=== PATIENT | female | born 1965 | race African-American/Black ===

== ENCOUNTER 2017-04-22 09:41 | Emergency (ER) | payer MEDICAID ==
[~2017-04-22] VITALS: Ht 162.6 cm; Wt 54.4 kg
--- NOTE | 2017-04-22 09:41 | NUR ---
Patient ANKITBhavna MAGALI, triaged by RN. Waiting for an available bed.
[2017-04-22 09:49] VITALS: BP 177/106
--- NOTE | 2017-04-22 10:36 | NUR ---
PATIENT IS A 51 YO FEMALE BIB EMS FROM [facility] FOR SORE THROAT, ADMITS TO SMOKING METH ALL NIGHT AND HAVING ANXIETY. SHE IS AWAKE AND ALERT ON ARRIVAL, NO ACUTE DISTRESS TO OVERFLOW 1 FOR MD CISNEROS.
[2017-04-22] MEDS ORDERED: CEPHALEXIN 500 MG CAP PO ONE (10:45)
[2017-04-22] MEDS ORDERED: DEXAMETHASONE 4 MG/ML VIAL PO ONE (10:45)
[2017-04-22] MEDS ORDERED: SULFAMETH/TRIMETH DS 800/160MG 1 TAB PO ONE (10:45)
[2017-04-22] MEDS ORDERED: ACETAMIN/CODEINE 120/12MG-5ML 5 ML UDC PO ONE (10:45)
--- NOTE | 2017-04-22 11:06 | NUR ---
PATIENT MEDICATED PER ORDER AND LAB SPECIMENT SENT.
--- NOTE | 2017-04-22 11:46 | NUR ---
PATIENT AWAITING LAB RESULTS STATES SHE FEELS BETTER.
[2017-04-22 12:05] VITALS: BP 142/76
--- NOTE | 2017-04-22 12:07 | NUR ---
PATIENT ELOPED FROM ER PRIOR TO DC SEEN WALKING AWAY BY STAFF.
== END 2017-04-22 12:07 | disposition left against medical advice (07) ==
LOC: MED 09:41
DX: J02.9 Acute pharyngitis, unspecified (principal); R03.0 Elevated blood-pressure reading, without diagnosis of hypertension
CPT/HCPCS: 36415; 87081; 87804; 99284; J1100

== ENCOUNTER 2017-05-01 20:30 | Emergency (ER) | payer MEDICAID ==
[~2017-05-01] VITALS: Ht 162.6 cm; Wt 56.7 kg
[2017-05-01 20:46] VITALS: BP 149/93
--- NOTE | 2017-05-01 21:22 | NUR ---
TO ER OF1
--- NOTE | 2017-05-01 21:30 | NUR ---
Patient being evaluated by physician
[2017-05-01 21:48] VITALS: BP 149/93
--- NOTE | 2017-05-01 21:48 | NUR ---
Patient discharged with v/s stable. Written and verbal after care instructions given and explained. Patient alert, oriented and verbalized understanding of instructions. Ambulatory with steady gait. All questions addressed prior to discharge. ID band removed. Patient advised to follow up with PMD. Rx of diphenhydramine given. Patient educated on indication of medication including possible reaction and side effects. Opportunity to ask questions provided and answered.
== END 2017-05-01 21:48 | disposition home or self-care (01) ==
LOC: MED 20:30
DX: L29.9 Pruritus, unspecified (principal); I10 Essential (primary) hypertension; Z86.2 Personal history of diseases of the blood and blood-forming organs and certain disorders involving the immune mechanism
CPT/HCPCS: 99282

== ENCOUNTER 2019-03-13 14:54 | Inpatient (IN) | payer MEDICAID ==
[~2019-03-13] VITALS: Ht 175.3 cm; Wt 54.0 kg
[2019-03-13 15:03] VITALS: BP 127/89
--- NOTE | 2019-03-13 15:30 | NUR ---
BROUGHT IN BY EMS FROM STREET IN [place] C/O REQUIRING MEDICAL CLEARANCE TO RE-ENTER JAIL FOR RECENT INFECTION W/ SCABIES. NO VISIBLE SIGN OF SCABIES, PT DENIES PAIN AT THIS TIME. VSS. WHEELCHAIR IS BEING VIANEY BY EMS AT THIS TIME FOR LT SIDED DEFECIT FROM PREVIOUS CVA HX--CVA WITH LEFT SIDED DEFICITS RX---??
[2019-03-13 15:59] LABS: BASOPHILS % (AUTO) 0.7 % (0.0-2.0); HEMATOCRIT 40.5 % (36-48); HEMOGLOBIN 13.3 g/dL (12.0-16.0); LYMPHOCYTES # (AUTO) 1.6 K/uL (2.5-16.5); LYMPHOCYTES % (AUTO) 45.5 % (20.5-51.1); MEAN CORPUSCULAR HEMOGLOBIN 29 pg (27-31); MEAN CORPUSCULAR HGB CONC 33 g/dL (33-37); MEAN CORPUSCULAR VOLUME 87.4 fL (80-94); MONOCYTES # (AUTO) 0.3 K/uL (0.8-1.0); MONOCYTES % (AUTO) 8.1 % (1.7-9.3); NEUTROPHILS # (AUTO) 1.6 K/uL (1.8-7.7); NEUTROPHILS % (AUTO) 44.7 % (42.2-75.2); PLATELET COUNT (AUTO) 316 K/uL (140-450); RED BLOOD CELL COUNT(AUTO) 4.63 MIL/uL (4.20-5.40); RED CELL DISTRIBUTION WIDTH 12.9 % (11.6-13.7); WHITE BLOOD COUNT (AUTO) 3.6 K/uL (4.8-10.8)
--- NOTE | 2019-03-13 16:00 | NUR ---
PT STATES SHE IS UNABLE TO PROVIDE URINE SAMPLE AT THIS TIME. LORI JIM MADE AWARE
--- NOTE | 2019-03-13 16:20 | NUR ---
# 14 FR Urinary catheter inserted utilizing sterile technique. Immediate return of 100 ml CLEAR YELLOW urine noted. Urine sample collected and sent to lab. Pt tolerated procedure WELL. PERFORMED BY ASIA PRICE
[2019-03-13 16:40] LABS: ALBUMIN 3.8 g/dL (3.4-5.0); ANION GAP 10.4 (8-16); CARBON DIOXIDE 31.7 mmol/L (21-32); POTASSIUM 5.1 mmol/L (3.5-5.1); TOTAL BILIRUBIN 0.5 mg/dL (0.0-1.0)
[2019-03-13 17:11] LABS: APPEARANCE,URINE HAZY (CLEAR); BILIRUBIN,URINE 1+ (NEGATIVE); BLOOD, URINE NEGATIVE (NEGATIVE); COLOR,URINE YELLOW (YELLOW); LEUKOCYTE ESTERASE ,URINE TRACE (NEGATIVE); NITRITE, URINE NEGATIVE (NEGATIVE); UGLUCOSE NEGATIVE (NEGATIVE)
--- NOTE | 2019-03-13 17:41 | NUR ---
PT SLEEPING IN BED, UPON AWAKING PT SHE STATES SHE HAS NO PAIN. VSS. PT ATE LUNCH AND HAS EXTRA SANDWICH PROVIDED FOR TO GO. PT WHEELCHAIR WAS DELIVERED AND IS CURRENTLY PLUGGED IN CHARGING.
[2019-03-13 17:54] LABS: BARBITURATE, URINE NEG. ng/ml (NEG <=200); BENZODIAZEPINE, URINE NEG. ng/mL (NEG <=200); CANNABINOID, URINE NEG. ng/mL (NEG <=50); COCAINE, URINE NEG. ng/mL (NEG <=300); OPIATE, URINE NEG. ng/mL (NEG <=2000); PHENCYCLIDINE SCREEN,URINE NEG. ng/mL (NEG <=25)
[2019-03-13] MEDS ORDERED: NACL 0.9% 1,000 ML IV ONE (18:25)
[2019-03-13] MEDS ORDERED: ZOLPIDEM 5 MG TAB PO PRN (18:35)
[2019-03-13] MEDS ORDERED: DOCUSATE SODIUM 100 MG GELCAP PO PRN (18:35)
[2019-03-13] MEDS ORDERED: HYDROcodone/APAP 5/325 MG 1 TAB TAB PO PRN (18:35)
[2019-03-13] MEDS ORDERED: LORazepam 2 MG/ML VIAL IM/IVP PRN (18:35)
[2019-03-13] MEDS ORDERED: ACETAMINOPHEN 325 MG TAB PO PRN (18:35)
[2019-03-13] MEDS ORDERED: ONDANSETRON 4 MG/2 ML VIAL IM/IVP PRN (18:35)
--- NOTE | 2019-03-13 19:00 | NUR ---
RECEIVED REPORT FROM CHARGE NURSE MAUREEN-ALBERT AT BEDSIDE. PT RESTING IN BED, AOX4, ON ROOM AIR WITH RIGHT AC #20 RUNNING NS WIDE OPEN. PT HAS LEFT SIDED WEAKNESS DUE TO HX: CVA. PT USES POWER WHEELCHAIR AND CANE AT BASELINE- NEEDS ASSISTANCE TO WALK. DISCUSSED PLAN OF CARE AND PT VERBALIZED UNDERSTANDING. VITAL SIGNS TAKEN AND TOLERATED WELL. MRSA NARES COLLECTED. BED IN LOWEST POSITION, BED BREAKS ON, BOTH SIDE RAILS UP AND FALL PRECAUTIONS IN PLACE. BEDSIDE TABLE AND CALL LIGHT ARE WITHIN REACH. WILL CONTINUE TO MONITOR.
--- NOTE | 2019-03-13 19:00 | NUR ---
Patient will be admitted to care of DR LOZOYA. Admited to MED/SURG VIA DANIELA W/ VSS. Will go to room 125B. Belongings list completed. Report to CHARGE NURSE.
[2019-03-13 19:02] LABS: PROTHROMBIN TIME 10.3 secs (10.8-13.4)
[2019-03-13 19:33] LABS: CHOL/HDL RATIO 3.7 (1-4.5); FREE T4 (FREE THYROXINE) 1.17 ng/dL (0.76-1.46); MAGNESIUM 2.4 mg/dL (1.8-2.4); THYROID STIMULATING HORMONE 1.08 uIU/mL (0.34-3.74)
[2019-03-13 20:00] VITALS: BP 105/63
--- NOTE | 2019-03-13 21:00 | NUR ---
PT SLEEPING IN BED. NO S/S OF RESPIRATORY DISTRESS OR DISCOMFORT NOTED AT THIS TIME. WILL CONTINUE TO MONITOR.
[2019-03-13] MEDS: NACL 0.9% 1,000 ML IV SCH (21:24)
--- NOTE | 2019-03-13 23:00 | NUR ---
PT CONTINUES TO SLEEP IN BED. NO S/S OF RESPIRATORY DISTRESS OR DISCOMFORT NOTED AT THIS TIME. WILL CONTINUE TO MONITOR.
[2019-03-14] VITALS: BP 114/69
--- NOTE | 2019-03-14 | NUR ---
VITAL SIGNS TAKEN AND TOLERATED WELL. NO S/S OF RESPIRATORY DISTRESS OR DISCOMFORT NOTED AT THIS TIME. WILL CONTINUE TO MONITOR.
--- NOTE | 2019-03-14 02:00 | NUR ---
PT CONTINUES TO SLEEP IN BED. NO S/S OF RESPIRATORY DISTRESS OR DISCOMFORT NOTED AT THIS TIME. WILL CONTINUE TO MONITOR.
--- NOTE | 2019-03-14 03:11 | NUR ---
SCHEDULED MEDICATION ROCEPHIN GIVEN AND TOLERATED WELL. NO S/S OF RESPIRATORY DISTRESS OR DISCOMFORT NOTED AT THIS TIME. WILL CONTINUE TO MONITOR.
[2019-03-14] MEDS ORDERED: cefTRIAXone 1,000 MG VIAL ONE (03:14)
--- NOTE | 2019-03-14 04:00 | NUR ---
PT CONTINUES TO SLEEP IN BED. NO S/S OF RESPIRATORY DISTRESS OR DISCOMFORT NOTED AT THIS TIME. WILL CONTINUE TO MONITOR.
[2019-03-14] MEDS: NACL 0.9% 1,000 ML IV SCH ×2 (04:32→15:55)
--- NOTE | 2019-03-14 06:00 | NUR ---
PT CONTINUES TO SLEEP IN BED. NO S/S OF RESPIRATORY DISTRESS OR DISCOMFORT NOTED AT THIS TIME. WILL CONTINUE TO MONITOR.
--- NOTE | 2019-03-14 07:09 | NUR ---
ENDORSED PT CARE TO DAY SHIFT NURSE CARRIE FOR CONTINUITY OF CARE.
--- NOTE | 2019-03-14 07:10 | NUR ---
RECEIVED REPORT FROM PORT WARDEN NURSE FOR CONTINUITY OF CARE. PT IN STABLE CONDITION.
--- NOTE | 2019-03-14 07:49 | NUR ---
ASSISTED PT TO RESTROOM TO URINATE. PT TOLERATED WELL. WILL CONTINUE TO MONITOR. BED IN LOW POSITION. BED ALARM ON. CALL LIGHT AT BEDSIDE.
[2019-03-14 08:00] VITALS: BP 132/77
--- NOTE | 2019-03-14 08:37 | NUR ---
PATIENT HAS BEEN SCREENED AND CATEGORIZED HIGH NUTRITION RISK. PATIENT WILL BE SEEN WITHIN 1-2 DAYS OF ADMISSION. 03/14/19-03/15/[address]
--- NOTE | 2019-03-14 10:10 | NUR ---
ASSISTED PT TO RESTROOM TO URINATE. PT TOLERATED WELL. WILL CONTINUE TO MONITOR. BED IN LOW POSITION. BED ALARM ON. CALL LIGHT AT BEDSIDE.
[2019-03-14] MEDS: ATORVASTATIN 20 MG TAB PO SCH (10:30)
[2019-03-14] MEDS: LACTOBACILLUS RHAMNOSUS GG 1 EACH CAP PO SCH (10:30)
--- NOTE | 2019-03-14 10:35 | NUR ---
Advertising Coordinator Note: I met with patient at bedside. I introduced myself to patient and explained my role as a medical center manager. She verbalized understanding. Patient was cooperative during conversation. Patient stated prior to hospital admission she was staying at [facility] ([facility] [address] [address]. She reported she has been staying at [facility] for about 2 months. She told me she was asked by [facility] staff to leave their premises because they thought she had scabies. She stated staff requested her to obtain medical documentation indicating she did not have scabies. She told me she would like to return to [facility] upon discharge. I explained to her that I was going to contact [facility] and fax medical documentation indicating she does not have scabies. She verbalized understanding. She uses an electric wheelchair and is able to ambulate with assistance. She receives about $930 from [employer] per month. She reported [facility] at this [facility]. She does not recall name of her new pcp. She reported pcp's office is located on [address] in [place], [place]. She suffers from depression. She denied SI and HI. She sees a psychiatrist at [place], [place]. She denied alcohol/substance abuse. She would like her sister Adis Pichardo to be her "person to notify" on face sheet, I informed Glenda Yis from Admitting Dept of this. I called and spoke with Reuben from [facility] ([facility]) . She requested medical information to be fax to attention [facility]. I faxed information. I called [facility] again to verify information was received, this time I spoke with Venkata. He stated they had not received information and verified was their fax number. He requested I email him information to his email address, [email or web address]. I emailed Venkata medical information.
--- NOTE | 2019-03-14 13:17 | NUR ---
PT LYING IN BED IN STABLE CONDITION. WILL CONTINUE TO MONITOR.
--- NOTE | 2019-03-14 14:45 | NUR ---
03/14/19 RD INITIAL ASSESSMENT COMPLETED PLEASE REFER TO NUTRITION ASSESSMENT UNDER CARE ACTIVITY FOR ESTIMATED NUTRITIONAL NEEDS. 1. CONTINUE REGULAR DIET TOLERATED 2. IF PO INTAKE <75% RECOMMEND ENSURE BID 3. RD PROVIDED NUTRITION EDUCATION ON LABEL READING FOR LOWERING CHOLESTEROL 4. RD TO FOLLOW-UP 5-7 DAYS, LOW RISK HARESH PURVIS RD
--- NOTE | 2019-03-14 16:30 | NUR ---
ASSISTED PT TO RESTROOM TO URINATE. PT TOLERATED WELL. WILL CONTINUE TO MONITOR. BED IN LOW POSITION. BED ALARM ON. CALL LIGHT AT BEDSIDE.
--- NOTE | 2019-03-14 19:24 | NUR ---
GAVE REPORT TO SALE PROFESSIONAL DIGITAL MARKETING NURSE FOR CONTINUITY OF CARE. PT IN STABLE CONDITION.
--- NOTE | 2019-03-14 19:25 | NUR ---
RECEIVED REPORT FROM DAY SHIFT NURSE KERRY-RN AT BEDSIDE. PT RESTING IN BED, AOX4, ON ROOM AIR WITH RIGHT AC #20 RUNNING NS WIDE OPEN. PT HAS LEFT SIDED WEAKNESS DUE TO HX: CVA. PT USES POWER WHEELCHAIR AND CANE AT BASELINE- NEEDS ASSISTANCE TO WALK. DISCUSSED PLAN OF CARE AND PT VERBALIZED UNDERSTANDING. BED IN LOWEST POSITION, BED BREAKS ON, BOTH SIDE RAILS UP AND FALL PRECAUTIONS IN PLACE. BEDSIDE TABLE AND CALL LIGHT ARE WITHIN REACH. WILL CONTINUE TO MONITOR.
[2019-03-14 20:00] VITALS: BP 120/60
--- NOTE | 2019-03-14 20:01 | NUR ---
VITAL SIGNS TAKEN AND TOLERATED WELL. SCHEDULED MEDICATION ROCEPHIN GIVEN AND TOLERATED WELL. NO S/S OF RESPIRATORY DISTRESS OR DISCOMFORT NOTED AT THIS TIME. WILL CONTINUE TO MONITOR.
--- NOTE | 2019-03-14 22:00 | NUR ---
PT SLEEPING IN BED. NO S/S OF RESPIRATORY DISTRESS OR DISCOMFORT NOTED AT THIS TIME. WILL CONTINUE TO MONITOR.
[2019-03-15] VITALS: BP 129/61
--- NOTE | 2019-03-15 | NUR ---
VITAL SIGNS TAKEN AND TOLERATED WELL. NO S/S OF RESPIRATORY DISTRESS OR DISCOMFORT NOTED AT THIS TIME. WILL CONTINUE TO MONITOR.
[2019-03-15] MEDS: NACL 0.9% 1,000 ML IV SCH ×2 (00:32→10:32)
--- NOTE | 2019-03-15 02:00 | NUR ---
PT CONTINUES TO SLEEP IN BED. NO S/S OF RESPIRATORY DISTRESS OR DISCOMFORT NOTED AT THIS TIME. WILL CONTINUE TO MONITOR.
--- NOTE | 2019-03-15 04:00 | NUR ---
PT CONTINUES SLEEPING IN BED. NO S/S OF RESPIRATORY DISTRESS OR DISCOMFORT NOTED AT THIS TIME. WILL CONTINUE TO MONITOR.
--- NOTE | 2019-03-15 06:00 | NUR ---
PT RESTING IN BED. NO S/S OF RESPIRATORY DISTRESS OR DISCOMFORT NOTED AT THIS TIME. WILL CONTINUE TO MONITOR.
[2019-03-15 06:53] LABS: ANION GAP 10.2 (8-16); CARBON DIOXIDE 26.9 mmol/L (21-32); CREATININE 0.9 mg/dL (0.6-1.3); POTASSIUM 4.1 mmol/L (3.5-5.1)
[2019-03-15 06:55] LABS: BASOPHILS % (AUTO) 0.7 % (0.0-2.0); EOSINOPHILS # (AUTO) 0.1 K/uL (0-0.4); EOSINOPHILS % (AUTO) 3.8 % (0.0-4.0); HEMATOCRIT 34.4 % (36-48); HEMOGLOBIN 11.2 g/dL (12.0-16.0); LYMPHOCYTES % (AUTO) 56.9 % (20.5-51.1); MEAN CORPUSCULAR HEMOGLOBIN 29 pg (27-31); MEAN CORPUSCULAR HGB CONC 33 g/dL (33-37); MEAN CORPUSCULAR VOLUME 88.4 fL (80-94); MONOCYTES # (AUTO) 0.3 K/uL (0.8-1.0); MONOCYTES % (AUTO) 8.8 % (1.7-9.3); NEUTROPHILS % (AUTO) 29.8 % (42.2-75.2); PLATELET COUNT (AUTO) 255 K/uL (140-450); RED BLOOD CELL COUNT(AUTO) 3.89 MIL/uL (4.20-5.40); WHITE BLOOD COUNT (AUTO) 3.5 K/uL (4.8-10.8)
[2019-03-15 06:57] LABS: PHOSPHORUS 4.2 mg/dL (2.5-4.9)
--- NOTE | 2019-03-15 07:04 | NUR ---
ENDORSED PT CARE TO DAY SHIFT NURSE CARRIE FOR CONTINUITY OF CARE.
--- NOTE | 2019-03-15 07:05 | NUR ---
RECEIVED REPORT FROM RACING MANAGER NURSE MATT FOR CONTINUITY OF CARE. PT IN STABLE CONDITION. RESPIRATIONS EVEN AND UNLABORED. IV INTACT AND PATENT. SAFETY MEASURES IN PLACE. CALL LIGHT AT BEDSIDE. BED IN LOW POSITION. BED ALARM ON. WILL CONTINUE TO MONITOR.
[2019-03-15 08:00] VITALS: BP 115/84
--- NOTE | 2019-03-15 09:33 | NUR ---
ASSISTED PT TO RESTROOM TO URINATE. PT TOLERATED WELL. WILL CONTINUE TO MONITOR. BED IN LOW POSITION. BED ALARM ON. CALL LIGHT AT BEDSIDE.
[2019-03-15] MEDS: ATORVASTATIN 20 MG TAB PO SCH (09:45)
[2019-03-15] MEDS: LACTOBACILLUS RHAMNOSUS GG 1 EACH CAP PO SCH (09:45)
--- NOTE | 2019-03-15 10:58 | NUR ---
Remelt Pan Tank Operator Note: I called and spoke with Reuben from [facility] ([facility]) to inquire if patient could return to their facility upon discharge. She referred me to speak with hotel service supervisor Paula. I spoke with Paula. Per Paula, she reviewed medical information indicating patient does not have scabies that I faxed to [facility]. She stated patient may return to their facility upon discharge. Patient is part of a 90 day temporary housing program at [facility]. Paula told me the staff at [facility] are assisting patient with finding longterm housing and have had some difficulty with this because she cannot ambulate independently. I offered to email me Paula information about an IE program ([facility], www.[employer]org/iecls) which assist individuals who meet their criteria with placement. Paula provided me with her email address, [email or web address]. I emailed her program information. Per , patient will not need prescription upon discharge. I informed patient may return to [facility] upon discharge.
--- NOTE | 2019-03-15 12:26 | NUR ---
ASSISTED PT TO RESTROOM TO URINATE. PT TOLERATED WELL. WILL CONTINUE TO MONITOR. BED IN LOW POSITION. BED ALARM ON. CALL LIGHT AT BEDSIDE.
--- NOTE | 2019-03-15 15:10 | NUR ---
GAVE DISCHARGE INSTRUCTIONS, PT VERBALIZED UNDERSTANDING OF INSTRUCTIONS. IV REMOVED, LUMEN INTACT. ID BAND REMOVED. PT GIVEN PUBLIC TRANSPORTATION VOUCHER. PERSONAL WHEELCHAIR BROUGHT TO PT BY SECURITY. PT ESCORTED TO LOBBY IN STABLE CONDITION.
== END 2019-03-15 15:10 | disposition home or self-care (01) | DRG 463 ==
LOC: MED 14:54 → MMU 18:32
PROVIDERS: ADMIT General Practice; ATTEND General Practice
DX: N39.0 Urinary tract infection, site not specified (principal); E87.8 Other disorders of electrolyte and fluid balance, not elsewhere classified; E78.5 Hyperlipidemia, unspecified; E86.0 Dehydration; F15.19 Other stimulant abuse with unspecified stimulant-induced disorder; I10 Essential (primary) hypertension; Z98.51 Tubal ligation status; Z59.0 Homelessness
CPT/HCPCS: 36415; 71045; 80048; 80053; 80305; 81003; 82150; 83036; 83690; 83735; 83880; 84100; 84439; 84443; 84484; 85025; 85610; 85730; 87081; 93005; 99285; J0696; J7030; J7060; Q0092